=== PATIENT | male | born 1945 | race Caucasian/White ===

== ENCOUNTER 2018-08-02 12:27 | Emergency (ER) | payer OTHER ==
[2018-08-02 13:13] VITALS: TEMP 98.2; BMI 32.9
--- NOTE | 2018-08-02 14:21 | PDOC ---
Attending Attestation - HPI HPI: 08/02/18 15:31 The patient is a 72 year old male with a PMH of CVA, HTN, asthma, BPH s/p TURP, and GERD who presents to the ER with left leg stiffness and swelling. Patient denies any trauma to the left leg. Patient reports having a hip operation approximately 1 month ago and has been doing his recommended exercises at home. Patient denies any new hip pain. Patient lives at home alone and ambulates with a cane. Patient states he is compliant with his HTN meds and diuretic. Patient denies any chest pain, shortness of breath, difficulty breathing, or urinary symptoms. Allergies: Penicillins PSH: B/l hip replacements, TURP Social Hx: Former smoker. Patient denies any current smoking, drinking, or other substance usage <Bernie Champion - Last Filed: 08/02/18 15:31> - Physicial Exam PE: 08/02/18 18:42 Agree with resident exam. Patient is alert and oriented x 3 and in no acute distress. + 2 pitting edema and a large area of induration on his calf that is not tender or erythematous. - Medical Decision Making 08/02/18 18:46 Pt presents to the ED complaining of painless swelling to his left leg one month after hip replacement, without pain, erythema or fever. + prior history of leg swelling that resolved with "water pill". No sign of infection. Labs are within normal limits. Will treat with one dose of last and discharge home. 08/02/18 18:47 <Paige Diaz - Last Filed: 08/02/18 18:51>
--- NOTE | 2018-08-02 14:33 | PDOC ---
History of Present Illness - General Chief Complaint: Edema Stated Complaint: LT LEG SWALLON Time Seen by Provider: 08/02/18 14:16 History Source: Patient Exam Limitations: No Limitations - History of Present Illness Initial Comments: 72 yo M w a pmh of CVA, HTN, asthma, BPH s/p TURP, and GERD who presents to the ER with Left leg swelling after a hip operation 1 month prior. He states he has mild leg pain and doesn't understand why his leg is swelling up. He denies any chest pain, shortness of breath or difficulty breathing. Patient denies having any chest pain, SOB, difficulty breathing, recent fevers, chills, infections, cough, headache, blurry vision, neck pain, back pain, dysuria, frequency, urgency, diarrea, constipation, nausea or vomiting. PCP: Patient just switched and doesn't remember name PSH: B/l hip replacements, TURP Social Hx: Former smoker. Currently denies smoking, drinking, or other substance usage Allergies: Penicillins Past History - Past Medical History Allergies/Adverse Reactions: Allergies Allergy/AdvReac Type Severity Reaction Status Date / Time Penicillins Allergy Verified 08/02/18 13:11 Home Medications: Ambulatory Orders Fluoxetine HCl [Prozac 90mg Weekly -] 90 mg PO WEEKLY 09/24/12 Hydrochlorothiazide 25 mg PO DAILY 09/24/12 Losartan Potassium 100 mg PO DAILY 09/24/12 Albuterol Sulfate Inhaler - [Ventolin HFA Inhaler -] 1 - 2 inh PO Q4H PRN Omeprazole [Prilosec (RX)] 40 mg PO DAILY 10/14/13 Salmeterol/Fluticasone [Advair 500Mcg/50Mcg -] 1 inh PO BID 10/14/13 CVA: Yes COPD: Yes GI Disorders: Yes (ACID REFLUX) HTN: Yes Psychiatric Problems: Yes (anxeity,depression) - Surgical History Orthopedic Surgery: Yes (rt thr) - Suicide/Smoking/Psychosocial Hx Smoking Status: No Smoking History: Former smoker Have you smoked in the past 12 months: No Number of Cigarettes Smoked Daily: 0 Information on smoking cessation initiated: No Hx Alcohol Use: No (past) Drug/Substance Use Hx: No Review of Systems - Review of Systems Able to Perform ROS?: Yes Comments:: CONSTITUTIONAL: Absent: fever, no chills, no fatigue EYES: Absent: visual changes ENT: Absent: ear pain, no sore throat CARDIOVASCULAR: Absent: chest pain, no palpitations RESPIRATORY: Absent: cough, no SOB GI: Absent: abdominal pain, no nausea, no vomiting, no constipation, no diarrhea GENITOURINARY: Absent: dysuria, no frequency, no hematuria MUSKULOSKELETAL: Present: Arthralgia Absent: back pain, no myalgia SKIN: Absent: rash NEURO: Absent: headache *Physical Exam - Vital Signs Last Vital Signs Temp Pulse Resp BP Pulse Ox 98.2 F 105 H 20 133/77 99 08/02/18 13:12 08/02/18 13:12 08/02/18 13:12 08/02/18 13:12 08/02/18 13:12 - Physical Exam Comments: GENERAL: Well-appearing, well-nourished. No apparent distress. HEENT: Normocephalic, atraumatic. PERRL, EOM intact. CARDIOVASCULAR: Normal S1, S2. Tachycardic rate and regular rhythm. PULMONARY: No evidence of respiratory distress. Lungs clear to auscultation bilaterally. No wheezing, rales or rhonchi. ABDOMEN: Soft, non-distended, non-tender. EXTREMITIES: Normal ROM in upper extremities. Limited ROM in lower extremities. No gross deformities. 1+ edema bilaterally. LEFT LEG: The leg is taught and mildly swollen but not erythematous. Negative patricia sign. SKIN: Warm, dry. No rash NEUROLOGICAL: No focal neurological deficits. Moderate Sedation - Procedure Monitoring Vital Signs: Procedure Monitoring Vital Signs Temperature 98.2 F 08/02/18 13:12 Pulse Rate 105 H 08/02/18 13:12 Respiratory Rate 20 08/02/18 13:12 Blood Pressure 133/77 08/02/18 13:12 O2 Sat by Pulse Oximetry (%) 99 08/02/18 13:12 ED Treatment Course - LABORATORY CBC & Chemistry Diagram: 08/02/18 14:55 08/02/18 14:55 Medical Decision Making - Medical Decision Making 72 yo M w a pmh of CVA, HTN, asthma, BPH s/p TURP, and GERD who presents to the ER with Left leg swelling after a hip operation 1 month prior. He states he has mild leg pain and doesn't understand why his leg is swelling up. He denies any chest pain, shortness of breath or difficulty breathing. VS: Tachycardic DDx IBNLT: Lymphedema, DVT, PE, cellulitis, vascular compromise Plan: Labs, Duplex, re-assess. Labs unremarkable and WNL Duplex shows no sign's of DVT - Will give patient 20 mg of lasix and have him follow up with his PCP. *DC/Admit/Observation/Transfer Diagnosis at time of Disposition: Left leg swelling - Discharge Dispostion Disposition: HOME Condition at time of disposition: Stable Decision to Admit order: No - Referrals Referrals: [facility] [place] [facility] [place] [Provider Group] - Patient Instructions Printed Discharge Instructions: Edema (Alternative Therapy), DI for Peripheral Edema, Unilateral Additional Instructions: You came into the ER with left leg swelling after your operation. We looked at your blood and did not see any signs of an infection. We also did an US of your leg and saw no blood clots. Please make sure to call up your primary care doctor in the next 3 to 5 days and schedule an appointment so he can monitor your leg, make sure you are getting better and being taken care of. Come back to the ER if your leg swells up more, you develop leg pain, become short of breath, or have any other new or worsening concerns. Thank you for coming to the [facility] ER. We hope you feel better soon! Print Language: UKRAINIAN - Post Discharge Activity
[2018-08-02 15:01] LABS: BASO % 0.5 % (0-2.0); EOS % 1.7 % (0-4.5); HEMATOCRIT 35.7 % (35.4-49); LYMPH % 18.8 % (8-40); MCH 28.3 pg (25.7-33.7); MCHC 33.5 g/dl (32.0-35.9); MEAN CELL VOLUME 84.4 fl (80-96); MEAN PLT VOLUME 7.9 fl (7.5-11.1); MONO % 8.6 % (3.8-10.2); NEUT % 70.4 % (42.8-82.8); PLATELET COUNT 437 K/MM3 (134-434); RBC 4.22 M/mm3 (4.00-5.60); RDW 14.2 % (11.9-15.9); WHITE BLOOD COUNT 11.1 K/mm3 (4.0-10.0)
[2018-08-02 15:27] LABS: ALK PHOS 175 U/L (45-117); ANION GAP 8 MMOL/L (8-16); BILIRUBIN,TOTAL 0.8 mg/dL (0.2-1); BLOOD UREA NITROGEN 24 mg/dL (7-18); CHLORIDE 102 mmol/L (98-107); CO2 28 mmol/L (21-32); CREATININE 1.1 mg/dL (0.55-1.3); GLUCOSE,RANDOM 89 mg/dL (74-106); POTASSIUM 4.1 mmol/L (3.5-5.1); SGOT/AST 20 U/L (15-37); SGPT/ALT 27 U/L (13-61); SODIUM 138 mmol/L (136-145)
[2018-08-02] MEDS ORDERED: FUROSEMIDE 40 MG/4 ML INJECTABLE VIAL IVPUSH ONE (15:32)
[2018-08-02] MEDS ORDERED: FUROSEMIDE 40 MG/4 ML INJECTABLE VIAL ONE (15:43)
[2018-08-02] MEDS ORDERED: FUROSEMIDE 20 MG TABLET (FP) PO ONE (15:44)
[2018-08-02] MEDS ORDERED: FUROSEMIDE 40 MG TABLET (FP) ONE (15:46)
[2018-08-02 15:51] VITALS: BP 143/85; PULSE 100
== END 2018-08-02 15:52 | disposition home or self-care (01) ==
LOC: JER 12:27
DX: R60.0 Localized edema (principal); Z98.890 Other specified postprocedural states; I10 Essential (primary) hypertension; J45.909 Unspecified asthma, uncomplicated; K21.9 Gastro-esophageal reflux disease without esophagitis; N40.0 Benign prostatic hyperplasia without lower urinary tract symptoms; Z86.73 Personal history of transient ischemic attack (TIA), and cerebral infarction without residual deficits; Z96.643 Presence of artificial hip joint, bilateral; Z87.891 Personal history of nicotine dependence
CPT/HCPCS: 36415; 80053; 85025; 93971-TC; 99281-25

== ENCOUNTER 2025-02-09 22:37 | Emergency (ER) | payer OTHER ==
[2025-02-09 22:46] VITALS: BP 160/108; PULSE 76; RESP 20; TEMP 98.2; BMI 31.6
[2025-02-09 23:44] LABS: EPI CELLS 6 /uL (0-25.1); HYALINE CASTS 0 /uL (0-3.1); URINE APPEARANCE CLOUDY; URINE BILIRUBIN 1+ (NEGATIVE); URINE COLOR RED; URINE GLUCOSE (UA) NEGATIVE (NEGATIVE); URINE KETONE NEGATIVE (NEGATIVE); URINE LEUK ESTERASE 1+ (NEGATIVE); URINE NITRITE POSITIVE (NEGATIVE); URINE PROTEIN 3+ (NEGATIVE); URINE UROBILINOGEN 0.2 mg/dL (0.2-1.0); URINE WBC 152 /uL (0-25.8)
[2025-02-09 23:45] LABS: URINE BACTERIA 0.0 /uL (0-1359); URINE RBC 3348.4 /uL (0-23.9)
[2025-02-10] MEDS ORDERED: SULFAMETHOXAZOLE/TRIMETHOPRIM 800MG/160MG D.S. TABLET ONE (00:30)
[2025-02-10] MEDS: SULFAMETHOXAZOLE/TRIMETHOPRIM 800MG/160MG D.S. TABLET PO ONE (00:31)
== END 2025-02-10 01:13 | disposition home or self-care (01) ==
LOC: JER 22:37
DX: N30.91 Cystitis, unspecified with hematuria (principal); R01.1 Cardiac murmur, unspecified
CPT/HCPCS: 81003; 87086; 99283-25